=== PATIENT | female | born 1990 | race Asian ===

== ENCOUNTER → 2016-11-07 | Outpatient (CLI) | payer OTHER ==
[2016-11-07 16:13] LABS: HEMATOCRIT 34.3 % (37-47)
[2016-11-07 17:22] LABS: MANUAL MICROSCOPIC REQUIRED? NO; REVIEW REQ? NO; URINE APPEARANCE CLEAR (CLEAR); URINE BILIRUBIN NEG (NEG); URINE COLOR YELLOW; URINE EPITHELIAL CELL AUTO 20-30 /lpf (0-5); URINE NITRITE NEG (NEG); URINE SPECIFIC GRAVITY 1.013 (1.000-1.030); UROBILINOGEN NEG (NEG)
[2016-11-07 19:16] LABS: GTGD 50 Grams
== END | disposition home or self-care (01) ==
LOC: C.LAB1850 14:48
PROVIDERS: ATTEND Obstetrics & Gynecology
DX: Z34.93 Encounter for supervision of normal pregnancy, unspecified, third trimester (principal)

== ENCOUNTER → 2016-12-05 | Outpatient (CLI) | payer OTHER | END | disposition home or self-care (01) | LOC: C.LABSPEC 17:44 | PROVIDERS: ATTEND Obstetrics & Gynecology | DX: Z34.93 Encounter for supervision of normal pregnancy, unspecified, third trimester (principal) ==

== ENCOUNTER 2020-12-29 07:39 | Inpatient (IN) ==
[2020-12-29] MEDS ORDERED: OXYTOCIN 30 UNITS/500 ML BAG IV PRN ×2 (08:12→08:17)
[2020-12-29 08:33] LABS: Hematocrit (blood only) 35.5 % (37-47); Hemoglobin 11.6 g/dL (12.0-16.0); Mean Corpuscular Hgb Conc 32.7 g/dL (32-36); Mean Corpuscular Volume 91.7 fL (80-100); Mean Platelet Volume 9.7 fL (7.4-10.4); Platelet Count 186 K/uL (130-400); RDW Coefficient of Variation 14.9 % (11.5-14.5); RDW Standard Deviation 49.5 fL (36.4-46.3); Red Blood Count 3.87 M/uL (4.2-5.4); White Blood Count 8.26 K/uL (4.8-10.8)
--- NOTE | 2020-12-29 09:18 | History & Physical Report ---
Date of Service December 29, 2020 Assessment & Plan (1) IUGR (intrauterine growth restriction): Plan: 30 y/o at 39 4/7 wga presenting for IOL for FGR VSS Fetus cat 1 Labor - planned for hernandez bulb and pit. Reviewed risks, benefits of hernandez bulb and pt provided verbal consent. 35cc hernandez bulb placed, will start pit as well GBS neg Epidural PRN Admission and Anticipated Discharge Date Admission Date: December 29, 2020 History of Present Illness Chief Complaint: IOL Primary Care Provider: NO PCP 30 y/o at 39 4/7 wga w/ PRIMO 01/01 by LMP who presents for planned IOL due to FGR. +FM though somewhat less over last few days. Denies regular ctx, LOF, VB PNI: FGR - 12/11 EFW 4.2%, DVP 4, AC<1% TANK at 21 wks Past [employer] Hx: G1 2012 Operative vaginal delivery at 41 wks G2 2017 at 40 weeks G3 current Menarche 14, q28-30d cycles Denies hx STIs Denies hx abnl pap, 08/2020 neg cytology Allergies Allergy/AdvReac Type Severity Reaction Status Date / Time No Known Allergies Allergy Verified 12/29/20 08:28 Home Medications Medication Instructions Recorded Confirmed Type calcium carbonate [Calcium 500] 500 mg PO DAILY 08/25/20 12/29/20 History prenat.vits,jessenia,[id number]-[id number] 1 tab PO DAILY 08/25/20 12/29/20 History breast pump #1 ea 12/07/20 12/28/20 Rx Patient History Medical History History of chicken pox Varicella vaccination Surgical History No history of previous surgery Family History Denies family history of Ovarian cancer Breast cancer Colorectal cancer Social History Smoking Status: Never smoker Hx Alcohol Use: No Hx Substance Use: No Preferred Language: Chilean Communication Ability: Effective Communication Ability Comment: offered 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 Beliefs That Will Affect Care: None marital status: marital status details: Ely Chahal (36) Current Living Situation: Family Current Living Situation Comment: , parents and 2 children current occupational status: unemployed Other Information That Helps Us Care for You: No Feels Safe at Home: Yes Safety Concerns: Feels Safe At This Time Assistive Devices: None Physical Exam Constitutional: WD/WN, vitals as above Respiratory: normal respiratory effort; no respiratory distress and no labored breathing Psychiatric: A+Ox3, euthymic affect Genitourinary: OB Exam Abdomen: + vertex (confirmed by BSUS) Manual OB Exam: + cervical dilation 1 cm, + cervical effacement 50% and + station -2 OB Exam Monitor Tracing: + external FHT monitor used, + external uterine monitor used (irritability) and + category I (140/mod/+accel/-decel) Results & Data ([facility]) Vital Signs (Past 12 Hours) Vital Signs Temp Pulse Resp BP 12/29/20 07:57 98.6 F 20 12/29/20 07:56 78 105/58 L Laboratory Results Initial OB Labs 05/31/20 Blood Type & RH B positive Antibody Screen Negative indirect matt HCT/HGB 36.1/12.4 Platelets 288 Pap Test Chlamydia Gonorrhea Rubella positive RPR non-reactive Urine Culture/Screen Insignificant bacteriuria <91177 cfu/ml HBsAg non-reactive HIV non-reactive MCV 88.9 GBS neg Diagnostic Findings 12/11 EFW 4.2%, DVP 4, AC<1%, anterior plac Coding Level of Care Code None Diagnoses IUGR (intrauterine growth restriction)
[2020-12-29] MEDS: LACTATED RINGER'S 1,000 ML IV PRN ×3 (09:37→19:17)
--- NOTE | 2020-12-29 14:23 | Labor Progress Brief Note ---
Date of Service December 29, 2020 Subjective Rossi balloon has come out. Comfortable, but feeling ctx. FHT Cat 1 [place] Q 2 SVE 4/50/-3, cephalic presentation Assessment & Plan Admission and Anticipated Discharge Date Admission Date: December 29, 2020 Results & Data ([facility]) Vital Signs (Past 12 Hours) Vital Signs Temp Pulse Resp BP 12/29/20 13:34 84 99/61 L 12/29/20 12:34 80 93/53 L 12/29/20 11:51 36.7 C 12/29/20 11:50 82 98/57 L 12/29/20 10:47 85 102/56 L 12/29/20 09:34 87 107/58 L 12/29/20 07:57 37.0 C 12/29/20 07:56 78 105/58 L Coding Level of Care Code None
[2020-12-29] MEDS ORDERED: ePHEDrine sulfate 50 MG/ML AMP ONE (15:21)
[2020-12-29] MEDS ORDERED: BUPIVACAINE 0.25% 30 ML VIAL ONE (15:21)
[2020-12-29] MEDS ORDERED: SODIUM CHLORIDE 0.9% INJ 10 ML VIAL ONE (15:21)
[2020-12-29] MEDS ORDERED: fentaNYL citrate 100 MCG/2 ML VIAL ONE (15:22)
[2020-12-29] MEDS ORDERED: fentaNYL 2MCG/ML ROPIVACAINE 1.25MG/ML 100 ML BAG EPI ONE (15:23)
--- NOTE | 2020-12-29 15:42 | Anesthesiology Consultation ---
Date of Service December 29, 2020 Assessment & Plan (1) Encounter for pre-operative examination: Chart Review Chart Review: Acceptable Risk for Surgery and Patient NOT seen in Pre Admission Testing Consults Requested none History Height/Weight Height: 5 ft 3 in Weight: 58.06 kg Allergies Allergy/AdvReac Type Severity Reaction Status Date / Time No Known Allergies Allergy Verified 12/29/20 08:28 Medications Home Medications Medication Instructions Recorded Confirmed Last Taken calcium carbonate [Calcium 500] 500 mg PO DAILY 08/25/20 12/29/20 12/27/20 20:00 prenat.vits,jessenia,jht-mbhx-itsxx 1 tab PO DAILY 08/25/20 12/29/20 12/22/20 12:00 breast pump #1 ea 12/07/20 12/28/20 Unknown Active Medications Generic Name Dose Route Start Last Admin Trade Name Freq PRN Reason Stop Dose Admin Oxytocin 30 units in 500 mls @ 9 mls/hr 12/29/20 08:17 12/29/20 14:27 Pitocin IV 12/31/20 08:16 0.54 units/hr .Q24H PRN 9 mls/hr Labor Induction/Augmentation Titration Protocol 0.54 UNITS/HR Lactated Ringer's 1,000 mls @ 125 mls/hr 12/29/20 08:12 12/29/20 15:26 Lr IV 12/31/20 08:11 999 mls/hr .Q8H PRN Administration L&D Protocol Protocol Past Medical History Medical History History of chicken pox Varicella vaccination Past Family History Family History Denies family history of Ovarian cancer Breast cancer Colorectal cancer Past Surgical History Surgical History No history of previous surgery Social History Smoking Status: Never smoker Hx Alcohol Use: No Hx Substance Use: No Physical Exam Vital Signs Last Vital Signs Temp 36.7 C 12/29/20 11:51 Pulse 76 12/29/20 14:28 Resp 20 12/29/20 11:51 BP 106/59 L 12/29/20 14:28 Testing Laboratory Results 12/29/20 08:23 Blood Type B Positive 12/29/20 08:23 Antibody Screen NEGATIVE 12/29/20 08:23
[2020-12-29] MEDS ORDERED: NALOXONE HCL 1 MG in SODIUM CHLORIDE 0.9% 1000ML 1,000 ML IV PRN (16:39)
[2020-12-29] MEDS ORDERED: ePHEDrine sulfate 50 MG/ML AMP IV PRN (16:39)
[2020-12-29] MEDS ORDERED: fentaNYL 2MCG/ML ROPIVACAINE 1.25MG/ML 100 ML BAG EPI PRN (16:39)
[2020-12-29] MEDS ORDERED: ONDANSETRON INJ 2 MG/ML 2 ML VIAL IV PRN (16:39)
[2020-12-29] MEDS ORDERED: NALOXONE HCL 0.4 MG/1 ML VIAL/CARP IV PRN (16:39)
[2020-12-29] MEDS ORDERED: diphenhydrAMINE 50 MG/ML VIAL IV PRN (16:39)
[2020-12-29] MEDS ORDERED: NALBUPHINE HCL INJ 10 MG/ML AMP IV PRN (16:39)
[2020-12-30] MEDS ORDERED: oxyCODONE/ACETAMINOPHEN 5mg/325mg TAB PO PRN (02:22)
[2020-12-30] MEDS ORDERED: DIPHTHERIA/TETANUS/PERTUSSIS 0.5 ML SYR/VIAL IM ONE (02:22)
[2020-12-30] MEDS ORDERED: ACETAMINOPHEN 325 MG TAB PO PRN (02:22)
[2020-12-30] MEDS ORDERED: SUPERCREAM 0.870% 15 GM JAR EXT PRN (02:22)
[2020-12-30] MEDS ORDERED: BENZOCAINE 20% AER SPR 82.5 GM CAN EXT PRN (02:22)
[2020-12-30] MEDS ORDERED: OXYTOCIN 30 UNITS/500 ML BAG IV PRN (02:22)
[2020-12-30] MEDS ORDERED: bisacodyL 10 MG SUPP PR PRN (02:22)
[2020-12-30] MEDS ORDERED: HYDROCORTISONE ACETATE 25 MG SUPP PR PRN (02:22)
--- NOTE | 2020-12-30 02:27 | Delivery Summary ---
Vaginal Delivery Summary Date of Service December 30, 2020 Vaginal Delivery Summary Vaginal Delivery Summary: Pre-delivery diagnoses: 30yo @ 39 08/25, IOL for IUGR Post-delivery diagnoses: same Procedure: spontaneous vaginal delivery Surgeon: Jaja Aquino DO Complications: none Findings: Viable female . Apgars: 8/9 . Weight pending, please see nursery records Estimated blood loss: 300ml Description of delivery: The patient progressed to complete with epidural anesthesia. She then began to push. She spontaneously vaginally delivered a viable from the cephalic presentation. The head delivered in KATE position. The anterior shoulder delivered, followed by the posterior shoulder, followed by the body. The baby was placed on mother's abdomen and a spontaneous cry was heard. Delayed cord clamping was employed, and the cord was doubly clamped and cut. Cord blood was obtained. The placenta was delivered spontaneously intact with a 3-vessel cord. The uterus and vagina were swept of clots and debris. IV pitocin was given. The uterus became firm. The cervix, vagina, and perineum were inspected and a small 1st degree perineal laceration was repaired with 3-0 vicryl. Excellent hemostasis was observed. The mother and baby are recovering in stable and good condition in the room. Sponge, needle and instrument counts were correct x 2. Jaja Aquino DO [facility] [place]
[2020-12-30] MEDS: IBUPROFEN 600 MG TAB PO PRN ×3 (04:31→19:46)
--- NOTE | 2020-12-30 05:01 | Anesthesia Procedure Note ---
Date of Service December 30, 2020 Anesthesia Post Epidural Note Vital Signs Vital Signs: Temp Pulse Resp BP Pulse Ox 36.8 C 83 18 94/55 L 99 12/30/20 02:12/30/20 04:24 12/30/20 04:12/30/20 04:12/30/20 01:48 Pain Intensity Lower Perineal: Pain Intensity: 6 Notes Mental Status: alert / awake / arousable and participated in evaluation Nausea / Vomiting: adequately controlled Pain: adequately controlled Airway Patency, RR, SpO2: stable & adequate BP & HR: stable & adequate Hydration State: stable & adequate Neuraxial Anesthesia: was administered and sensory block is resolving Anesthetic Complications: no major complications apparent and Pt Satisfied with anesthetic care Epidural: Removed without complications and With tip intact Notes: Epidural site clean, dry and intact. No signs of edema, erythema or bruising at insertion site. Pt instructed to request anesthesia if she has residual lower extremity numbness or if she develops lower extremity pain or weakness, back pain or headache.
[2020-12-30] MEDS ORDERED: PRENATAL VITAMIN 1 TAB PO SCH (08:00)
[2020-12-30] MEDS: DOCUSATE SODIUM 100 MG CAP PO SCH (19:46)
[2020-12-31 06:41] LABS: Hematocrit (blood only) 35.1 % (37-47); Hemoglobin 11.2 g/dL (12.0-16.0)
[2020-12-31] MEDS: DOCUSATE SODIUM 100 MG CAP PO SCH (08:44)
--- NOTE | 2020-12-31 09:07 | Obstetrical Progress Note ---
Date of Service December 31, 2020 Assessment & Plan (1) Encounter for care and examination after delivery: 30yo Day 1 s/p . Doing well. Stable for discharge if desired. Subjective Ambulation: ambulating normally Voiding: no voiding problems Passing Gas:: Yes Diet Tolerance:: regular diet Lochia:: Moderate Feeding Type:: breast feeding Physical Exam Constitutional WD/WN, vitals as above Respiratory normal respiratory effort; no respiratory distress and no labored breathing Gastrointestinal (Abdomen) Inspection/Auscultation: abdomen normal to inspection; abdomen not distended Percussion/Palpation: abdomen soft; abdomen nontender, no guarding and abdomen not rigid Genitourinary OB Exam Abdomen: + fundal height Fundus: + firm and + relation to umbilicus (Below); not tender or not boggy Results & Data ([facility]) Vital Signs (Past 12 Hours) Vital Signs Temp Pulse Resp BP Pulse Ox 12/31/20 08:30 36.8 C 80 18 98/57 L 12/30/20 23:50 36.7 C 81 16 97/58 L 98
[2020-12-31] MEDS: IBUPROFEN 600 MG TAB PO PRN (09:28)
[2020-12-31] MEDS ORDERED: bisacodyL 5 MG TABEC PO SCH (20:00)
== END 2020-12-31 12:40 | disposition home or self-care (01) | DRG 807 ==
LOC: 4S1 07:39 → 4S2 12-30 06:00
DX: O70.0 First degree perineal laceration during delivery; Z37.0 Single live birth; O36.5931 Maternal care for other known or suspected poor fetal growth, third trimester, fetus 1; Z3A.39 39 weeks gestation of pregnancy